=== PATIENT | male | born 1950 | race Caucasian/White ===

== ENCOUNTER 2019-10-06 11:43 | Outpatient (CLI) | payer OTHER, SELFPAY ==
--- NOTE | ~2019-10-06 | XR_ITS ---
EXAMINATION: XR chest 2V DATE: 10/06/2019 11:52 INDICATION: Personal history of nicotine dependence. TECHNIQUE: Frontal and lateral views of the chest were obtained. COMPARISON: None. FINDINGS: The chest demonstrates clear lungs without pneumonia, pleural effusion, or pneumothorax. Th e heart size is normal. IMPRESSION: 1. No acute cardiopulmonary disease. Reviewed, dictated and finalized at location A. TICS TEACHER
== END 2019-10-06 11:44 | disposition home or self-care (01) ==
LOC: ANHBWCIMG 11:45
PROVIDERS: PCP Family Medicine; Visit Provider Family Medicine
DX: Z87.891 Personal history of nicotine dependence (principal)
CPT/HCPCS: 71046

== ENCOUNTER 2019-10-27 09:17 | Outpatient (CLI) | payer OTHER, SELFPAY ==
[2019-10-27 17:08] LABS: Basophils Absolute Auto 0.1 K/mm3 (0.0-0.1); Basophils Percent Auto 0.9 % (0.2-1.2); Eosinophils Absolute Auto 0.2 K/mm3 (0-0.3); Eosinophils Percent Auto 3.7 % (0-4.4); Hemoglobin 14.9 g/dL (14.0-18.0); Immature Granulocyte Absolute 0.03 K/mm3 (0.00-0.031); Immature Granulocyte Percent A 0.6 % (0-0.5); Lymphocytes Absolute Auto 1.76 K/mm3 (0.9-3.2); Lymphocytes Percent Auto 32.5 % (18.3-44.2); Mean Corpuscular HGB Conc 33.1 g/dl (32-36); Mean Corpuscular Hemoglobin 29.9 pg (26-34); Mean Corpuscular Volume 90.4 fl (80-100); Mean Platelet Volume 10.2 fl (7.4-10.4); Monocytes Absolute Auto 0.7 K/mm3 (0.1-0.6); Monocytes Percent Auto 12.4 % (2.6-8.5); Neutrophils Absolute Auto 2.7 K/mm3 (1.3-6.7); Neutrophils Percent Auto 49.9 % (45.5-73.1); Platelet Count Result 235 k/mm3 (150-375); Red Blood Count 4.98 M/mm3 (4.6-6.20); Red Cell Distribution Width 12.7 % (11.5-14.5); White Blood Count 5.4 K/mm3 (4.5-10.0)
[2019-10-27 17:27] LABS: Alanine Aminotransferase 31 U/L (4-50); Albumin Level 4.6 g/dL (3.5-5.1); Alkaline Phosphatase 93 U/L (38-126); Aspartate Amino Transferase 35 U/L (17-59); Blood Urea Nitrogen 15 mg/dL (9-20); CRP < 0.5 mg/dL (<1.0); Carbon Dioxide 28 mmol/L (22-30); Chloride 104 mmol/L (98-107); Cholesterol 225 mg/dL (0-200); Estimated Glomerular Filt Rate > 60; Glucose 108 mg/dL (75-110); HDL Direct 38 mg/dL; Potassium 4.6 mmol/L (3.4-5.0); Sodium 141 mmol/L (137-145); Triglycerides 219 mg/dL (<150)
[2019-10-27 17:30] LABS: Add Urine Microscopic? YES; Appearance Urine Clear (Clear); Bilirubin Urine Negative (Negative); Blood Urine Negative (Negative); Color Urine Amber (Yellow); Glucose Urine UA Negative (Negative); Ketones Urine Negative (Negative); Leukocyte Esterase Ur Negative LEU/UL (Negative); Nitrate Urine Negative (Negative); Protein Urine Negative (Negative); Specific Grav Ur 1.023 (1.001-1.035); Urobilinogen Urine Negative mg/dL (<2.0)
[2019-10-27 17:36] LABS: LDL Cholesterol Direct 142 mg/dL
[2019-10-27 17:37] LABS: Iron 104 ug/dL (49-181)
[2019-10-27 17:46] LABS: Percent Iron Saturation 35 % (20-50)
[2019-10-27 17:51] LABS: Vitamin D 25 Hydroxy 70.8 ng/mL
[2019-10-27 18:34] LABS: Folic Acid > 20.0 ng/mL (2.76->20)
[2019-10-31 21:17] LABS: C-Peptide 2.08 ng/mL (0.80-3.85)
[2019-11-01 08:54] LABS: Testosterone Free 46.7 pg/mL (35.0-155.0); Testosterone Total 359 ng/dL (250-1100)
== END 2019-10-27 09:18 | disposition home or self-care (01) ==
LOC: ANHBWCLAB 09:19
PROVIDERS: PCP Family Medicine; Visit Provider Family Medicine
DX: E05.00 Thyrotoxicosis with diffuse goiter without thyrotoxic crisis or storm (principal); G62.9 Polyneuropathy, unspecified; M19.90 Unspecified osteoarthritis, unspecified site; R53.83 Other fatigue; Z12.5 Encounter for screening for malignant neoplasm of prostate; Z79.899 Other long term (current) drug therapy; Z82.62 Family history of osteoporosis; N99.89 Other postprocedural complications and disorders of genitourinary system; R20.0 Anesthesia of skin
CPT/HCPCS: 36415; 80053; 80061; 81001; 82306; 82607; 82746; 83540; 83550; 84402; 84403; 84443; 84681; 85025; 86140

== ENCOUNTER 2021-06-17 10:40 | Outpatient (CLI) | payer OTHER, SELFPAY ==
[2021-06-17 20:17] LABS: Hematocrit 46.3 % (42.0-52.0); Hemoglobin 15.4 g/dL (14.0-18.0); Mean Corpuscular HGB Conc 33.3 g/dl (32-36); Mean Corpuscular Hemoglobin 30.8 pg (26-34); Mean Corpuscular Volume 92.6 fl (80-100); Mean Platelet Volume 10.1 fl (7.4-10.4); Platelet Count Result 240 k/mm3 (150-375); Red Cell Distribution Width 12.4 % (11.5-14.5); White Blood Count 6.7 K/mm3 (4.5-10.0)
[2021-06-17 20:25] LABS: Alanine Aminotransferase 29 U/L (4-50); Albumin Level 4.8 g/dL (3.5-5.1); Alkaline Phosphatase 83 U/L (38-126); Anion Gap 11 mmol/L (8-16); Aspartate Amino Transferase 31 U/L (17-59); Blood Urea Nitrogen 20 mg/dL (9-20); Calcium 9.1 mg/dL (8.4-10.2); Carbon Dioxide 28 mmol/L (22-30); Chloride 103 mmol/L (98-107); Estimated Glomerular Filt Rate > 60; Glucose 131 mg/dL (65-110); Potassium 4.4 mmol/L (3.4-5.0); Sodium 142 mmol/L (137-145)
[2021-06-17 20:27] LABS: Cholesterol 250 mg/dL (0-200); HDL Direct 35 mg/dL; Triglycerides 241 mg/dL (<150)
[2021-06-17 20:38] LABS: LDL Cholesterol Direct 164 mg/dL
[2021-06-17 21:25] LABS: Vitamin D 25 Hydroxy 68.1 ng/mL
[2021-06-17 21:39] LABS: Thyroid Stimulating Hormone Reflex 0.527 uIU/mL (0.465-4.68)
== END 2021-06-17 10:41 | disposition home or self-care (01) ==
PROVIDERS: PCP Family Medicine; Visit Provider Family Medicine
DX: E05.00 Thyrotoxicosis with diffuse goiter without thyrotoxic crisis or storm (principal); Z68.28 Body mass index [BMI] 28.0-28.9, adult; E55.9 Vitamin D deficiency, unspecified; R79.89 Other specified abnormal findings of blood chemistry; Z12.5 Encounter for screening for malignant neoplasm of prostate
CPT/HCPCS: 36415; 80053; 80061; 82306; 84153; 84443; 85027; G0103

== ENCOUNTER 2021-12-15 10:55 | Outpatient (CLI) | payer OTHER, SELFPAY ==
[2021-12-15 18:45] LABS: Hematocrit 45.7 % (42.0-52.0); Hemoglobin 14.8 g/dL (14.0-18.0); Mean Corpuscular HGB Conc 32.4 g/dl (32-36); Mean Corpuscular Hemoglobin 30.3 pg (26-34); Mean Corpuscular Volume 93.5 fl (80-100); Mean Platelet Volume 10.1 fl (7.4-10.4); Platelet Count Result 255 k/mm3 (150-375); Red Blood Count 4.89 M/mm3 (4.6-6.20); Red Cell Distribution Width 12.4 % (11.5-14.5); White Blood Count 7.4 K/mm3 (4.5-10.0)
[2021-12-15 19:01] LABS: Alanine Aminotransferase 19 U/L (4-50); Albumin Level 4.6 g/dL (3.5-5.1); Alkaline Phosphatase 90 U/L (38-126); Anion Gap 10 mmol/L (8-16); Aspartate Amino Transferase 22 U/L (17-59); Bilirubin,Total 0.7 mg/dL (0.2-1.3); Blood Urea Nitrogen 17 mg/dL (9-20); Calcium 8.8 mg/dL (8.4-10.2); Carbon Dioxide 29 mmol/L (22-30); Chloride 103 mmol/L (98-107); Cholesterol 165 mg/dL (0-200); Estimated Glomerular Filt Rate > 60; Glucose 112 mg/dL (65-110); HDL Direct 38 mg/dL; Potassium 4.3 mmol/L (3.4-5.0); Sodium 142 mmol/L (137-145); Triglycerides 175 mg/dL (<150)
[2021-12-15 19:14] LABS: LDL Cholesterol Direct 87 mg/dL
[2021-12-15 19:19] LABS: Hemoglobin A1C 5.4 % (<5.7)
[2021-12-16 19:53] LABS: Amphetamines NEGATIVE ng/mL (<500); Barbiturates NEGATIVE ng/mL (<300); Benzodiazepines NEGATIVE ng/mL (<100); Cocaine Metabolite NEGATIVE ng/mL (<100); Marijuana Metabolite NEGATIVE ng/mL (<20); Methadone Metabolite NEGATIVE ng/mL (<100); Opiates NEGATIVE ng/mL (<100); Oxidant NEGATIVE mcg/mL (<200); pH 6.2 (4.5-9.0)
== END 2021-12-15 10:56 | disposition home or self-care (01) ==
PROVIDERS: PCP Family Medicine; Visit Provider Family Medicine
DX: E05.00 Thyrotoxicosis with diffuse goiter without thyrotoxic crisis or storm (principal); G62.9 Polyneuropathy, unspecified; I10 Essential (primary) hypertension; R73.09 Other abnormal glucose; Z79.899 Other long term (current) drug therapy; M19.90 Unspecified osteoarthritis, unspecified site
CPT/HCPCS: 36415; 80053; 80061; 80299; 83036; 85027

== ENCOUNTER 2022-05-28 10:36 | Outpatient (CLI) | payer OTHER, SELFPAY ==
--- NOTE | ~2022-05-28 | XR_ITS ---
EXAMINATION: XR wrist LT min 3V DATE: 05/28/2022 10:59 INDICATION: Ulnar-sided pain and swelling at the left wrist TECHNIQUE: Posteroanterior, ulnar deviation, oblique, and lateral views of the left wrist were obtain ed. COMPARISON: none FINDINGS: Alignment is normal. No fracture. Polyarticular osteoarthritis, severe at the triscaphe, first carpom etacarpal, pisotriquetral, first-third metacarpophalangeal and at all of the visualized interphalange al joints, moderate at the distal radioulnar joint and mild at the wrist and midcarpal and fourth and fifth metacarpophalangeal joints. Soft tissues are unremarkable. IMPRESSION: 1. Moderate to severe polyarticular osteoarthritis throughout the visualized left hand and wrist. No acute osseous abnormality. Reviewed, dictated and finalized at location A. IMPRESSION: 1. Moderate to severe polyarticular osteoarthritis throughout the visualized le ft hand and wrist. No acute osseous abnormality.
--- NOTE | ~2022-05-28 | XR_ITS ---
EXAMINATION: XR forearm RT 2V DATE: 05/28/2022 11:00 INDICATION: Right forearm pain and swelling. TECHNIQUE: 2 views of right forearm were obtained. COMPARISON: None. FINDINGS: Bone alignment is normal. No fracture. There is severe osteoarthritis of first carpometacar pal joint and mild osteoarthritis of triscaphe joint. 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 No elbow joint effusion. IMPRESSION: 1. Polyarticular osteoarthritis. Reviewed, dictated and finalized at location A.
--- NOTE | ~2022-05-28 | XR_ITS ---
EXAMINATION: XR knee LT min 4V DATE: 05/28/2022 10:59 INDICATION: Chronic left knee pain. Arthritis. TECHNIQUE: 4 views of left knee were obtained. COMPARISON: Left knee radiographs 09/05/2020 FINDINGS: Bone alignment is normal. No fracture. There is severe osteoarthritis of medial compartment , moderate osteoarthritis of patellofemoral compartment, and mild osteoarthritis of lateral compartme nt. There is a small knee joint effusion. IMPRESSION: 1. Severe left knee osteoarthritis. 2. Small knee joint effusion. Reviewed, dictated and finalized at location A.
[2022-05-28 18:37] LABS: Hematocrit 45.7 % (42.0-52.0); Hemoglobin 15.1 g/dL (14.0-18.0); Mean Corpuscular Hemoglobin 30.9 pg (26-34); Mean Corpuscular Volume 93.5 fl (80-100); Platelet Count Result 241 k/mm3 (150-375); Red Blood Count 4.89 M/mm3 (4.6-6.20); Red Cell Distribution Width 12.4 % (11.5-14.5); White Blood Count 6.3 K/mm3 (4.5-10.0)
[2022-05-28 20:13] LABS: Vitamin D 25 Hydroxy 77.5 ng/mL
[2022-05-28 20:27] LABS: Alanine Aminotransferase 22 U/L (6-50); Albumin Level 4.8 g/dL (3.5-5.1); Alkaline Phosphatase 91 U/L (38-126); Anion Gap 12 mmol/L (8-16); Aspartate Amino Transferase 59 U/L (17-59); Bilirubin,Total 0.9 mg/dL (0.2-1.3); Blood Urea Nitrogen 18 mg/dL (9-20); Calcium 8.6 mg/dL (8.4-10.2); Carbon Dioxide 29 mmol/L (22-30); Chloride 101 mmol/L (98-107); Cholesterol 140 mg/dL (0-200); Estimated Glomerular Filt Rate > 60; Glucose 130 mg/dL (65-110); HDL Direct 34 mg/dL; Potassium 4.4 mmol/L (3.4-5.0); Sodium 142 mmol/L (137-145); Triglycerides 169 mg/dL (<150)
[2022-05-28 20:35] LABS: LDL Cholesterol Direct 71 mg/dL
[2022-05-28 20:56] LABS: Prostate Specific Antigen 1.7 ng/mL (< OR = 4.0)
[2022-05-28 20:57] LABS: Thyroid Stimulating Hormone 0.344 uIU/mL (0.465-4.680)
== END 2022-05-28 10:37 | disposition home or self-care (01) ==
PROVIDERS: PCP Family Medicine; Visit Provider Family Medicine
DX: E05.00 Thyrotoxicosis with diffuse goiter without thyrotoxic crisis or storm (principal); E53.8 Deficiency of other specified B group vitamins; E78.5 Hyperlipidemia, unspecified; I10 Essential (primary) hypertension; R79.89 Other specified abnormal findings of blood chemistry; R53.83 Other fatigue; Z12.5 Encounter for screening for malignant neoplasm of prostate; Z79.899 Other long term (current) drug therapy; M19.031 Primary osteoarthritis, right wrist; M17.12 Unilateral primary osteoarthritis, left knee; M25.462 Effusion, left knee; M19.032 Primary osteoarthritis, left wrist; M19.042 Primary osteoarthritis, left hand
CPT/HCPCS: 36415; 73090; 73110; 73564; 80053; 80061; 82306; 82607; 84153; 84443; 85027; G0103

== ENCOUNTER 2022-09-21 08:53 | Outpatient (CLI) | payer OTHER, SELFPAY ==
--- NOTE | ~2022-09-21 | XR_ITS ---
EXAMINATION: XR knee RT 3V DATE: 09/21/2022 09:09 INDICATION: Right knee pain. TECHNIQUE: 3 views of right knee were obtained. COMPARISON: None. FINDINGS: There is a total right knee arthroplasty without patellar resurfacing in near-anatomic alig nment. No periprosthetic lucency to suggest loosening or infection. There are osteophytes of the mtz lla. No knee joint effusion. IMPRESSION: 1. Total right knee arthroplasty in near-anatomic alignment. 2. Mild patellofemoral compartment osteoarthritis. Reviewed, dictated and finalized at location A. EM MILL STICKER
[2022-09-21 19:38] LABS: Thyroid Stimulating Hormone 0.182 uIU/mL (0.465-4.680)
== END 2022-09-21 08:54 | disposition home or self-care (01) ==
LOC: ANHBWCLAB 08:54
PROVIDERS: PCP Family Medicine; Visit Provider Family Medicine
DX: E05.00 Thyrotoxicosis with diffuse goiter without thyrotoxic crisis or storm (principal); M17.11 Unilateral primary osteoarthritis, right knee
CPT/HCPCS: 36415; 73562; 84443

== ENCOUNTER 2022-09-21 09:54 | Outpatient (CLI) | payer OTHER, SELFPAY ==
--- NOTE | ~2022-09-21 | US_ITS ---
EXAMINATION: US aorta DATE: 09/21/2022 10:25 INDICATION: Dominant aortic aneurysm screening with risk factors of hypertension and bursal history o f nicotine dependence TECHNIQUE: Grayscale, color Doppler, and pulsed Doppler images of the aorta and common iliac arteries were obtained. COMPARISON: None. FINDINGS: The proximal aorta measures 2.3 cm. The mid aorta measures 2.1 cm in AP diameter. The distal aorta me asures 1.9 cm. The right common iliac artery measures 1.3 cm. The left common iliac artery measures 1 .1 cm. IMPRESSION: 1. Normal caliber abdominal aorta. No aneurysm. Reviewed, dictated and finalized at location A. DEVELOPER
== END 2022-09-21 09:55 | disposition home or self-care (01) ==
PROVIDERS: PCP Family Medicine; Visit Provider Family Medicine
DX: E05.00 Thyrotoxicosis with diffuse goiter without thyrotoxic crisis or storm (principal); Z87.891 Personal history of nicotine dependence
CPT/HCPCS: 36415; 73562; 76775; 84443

== ENCOUNTER 2023-03-25 13:55 | Outpatient (CLI) | payer OTHER, SELFPAY ==
[2023-03-25 18:36] LABS: Hematocrit 41.1 % (42.0-52.0); Hemoglobin 13.8 g/dL (14.0-18.0); Mean Corpuscular HGB Conc 33.6 g/dl (32-36); Mean Corpuscular Hemoglobin 31.4 pg (26-34); Mean Corpuscular Volume 93.6 fl (80-100); Mean Platelet Volume 10.5 fl (7.4-10.4); Platelet Count Result 217 k/mm3 (150-375); Red Blood Count 4.39 M/mm3 (4.6-6.20); Red Cell Distribution Width 11.6 % (11.5-14.5); White Blood Count 7.9 K/mm3 (4.5-10.0)
[2023-03-25 18:57] LABS: Alanine Aminotransferase 25 U/L (6-50); Albumin Level 4.5 g/dL (3.5-5.1); Alkaline Phosphatase 70 U/L (38-126); Anion Gap 7 mmol/L (8-16); Aspartate Amino Transferase 37 U/L (17-59); Bilirubin,Total 1.1 mg/dL (0.2-1.3); Blood Urea Nitrogen 23 mg/dL (9-20); Calcium 8.5 mg/dL (8.4-10.2); Carbon Dioxide 32 mmol/L (22-30); Chloride 100 mmol/L (98-107); Estimated Glomerular Filt Rate > 60; Glucose 95 mg/dL (65-110); Potassium 4.4 mmol/L (3.4-5.0); Sodium 139 mmol/L (137-145)
== END 2023-03-25 13:56 | disposition home or self-care (01) ==
PROVIDERS: PCP Family Medicine; Visit Provider Family Medicine
DX: I10 Essential (primary) hypertension (principal); E03.9 Hypothyroidism, unspecified
CPT/HCPCS: 36415; 80053; 84443; 85027

== ENCOUNTER 2023-04-28 13:07 | Outpatient (CLI) | payer OTHER, SELFPAY ==
[2023-04-28 18:15] LABS: Hematocrit 41.4 % (42.0-52.0); Hemoglobin 13.7 g/dL (14.0-18.0); Mean Corpuscular HGB Conc 33.1 g/dl (32-36); Mean Corpuscular Hemoglobin 31.6 pg (26-34); Mean Corpuscular Volume 95.4 fl (80-100); Mean Platelet Volume 10.5 fl (7.4-10.4); Platelet Count Result 235 k/mm3 (150-375); Red Blood Count 4.34 M/mm3 (4.6-6.20); Red Cell Distribution Width 11.6 % (11.5-14.5); White Blood Count 6.9 K/mm3 (4.5-10.0)
[2023-04-28 19:21] LABS: Iron 75 ug/dL (49-181)
[2023-04-28 20:57] LABS: Percent Iron Saturation 23 % (20-50)
== END 2023-04-28 13:08 | disposition home or self-care (01) ==
PROVIDERS: PCP Family Medicine; Visit Provider Family Medicine
DX: D64.9 Anemia, unspecified (principal)
CPT/HCPCS: 36415; 82607; 82728; 83540; 83550; 85027

== ENCOUNTER 2023-10-18 13:42 | Outpatient (CLI) | payer OTHER, SELFPAY ==
--- NOTE | ~2023-10-18 | XR_ITS ---
EXAM: XR elbow RT min 3V DATE: 10/18/2023 14:06 HISTORY: Pain bilateral elbows - unable to straighten, no injury . COMPARISON: Right elbow, same date. FINDINGS: Normal mineralization. No fracture or dislocation. No lytic or blastic lesion. Moderate na rrowing, subchondral sclerosis, and osteophytosis at the radiohumeral and ulnohumeral articulations. Medial enthesopathy. Minimal olecranon enthesopathy. No erosion or periosteal change. Small elbow perez nt effusion. IMPRESSION: Moderate elbow osteoarthritis. Reviewed, dictated and finalized at location K. PROGRAMMER ANALYST
--- NOTE | ~2023-10-18 | XR_ITS ---
Left elbow Technique: AP, oblique, and lateral views were obtained. Clinical History: Pain Findings: No acute fracture or dislocation is seen. Osseous alignment is anatomic. There is moderate to advanced osteoarthritis throughout the elbow joint. There is no displacement of the fat pads, and soft tissues are unremarkable. Impression: Moderate to advanced osteoarthritis throughout the elbow joint. Large osteophyte versus possibly loos e body at the anterior aspect of the joint. Reviewed, dictated and finalized at location M. ERGARTEN AIDE Impression: Moderate to advanced osteoarthritis throughout the elbow joint. Large osteophyt e versus possibly loose body at the anterior aspect of the joint.
== END 2023-10-18 13:43 | disposition home or self-care (01) ==
PROVIDERS: PCP Family Medicine; Visit Provider Family Medicine
DX: M19.021 Primary osteoarthritis, right elbow (principal); M19.022 Primary osteoarthritis, left elbow
CPT/HCPCS: 73080

== ENCOUNTER 2023-12-07 13:51 | Outpatient (CLI) | payer OTHER, SELFPAY ==
--- NOTE | ~2023-12-07 | XR_ITS ---
Left Shoulder Technique: AP and scapular Y views were obtained. Clinical History: Pain Findings: No fracture or dislocation is seen. Osseous alignment is anatomic. The glenohumeral and acr omioclavicular joint spaces are preserved. Soft tissues are unremarkable. Impression: Unremarkable left shoulder radiographs. Reviewed, dictated and finalized at [facility]. Impression: Unremarkable left shoulder radiographs.
== END 2023-12-07 13:52 | disposition home or self-care (01) ==
PROVIDERS: PCP Family Medicine; Visit Provider Family Medicine
DX: M25.512 Pain in left shoulder (principal)
CPT/HCPCS: 73030

== ENCOUNTER 2024-06-12 13:09 | Outpatient (CLI) | payer OTHER, SELFPAY ==
[2024-06-12 18:59] LABS: Basophils Absolute Auto 0.1 K/mm3 (0.0-0.1); Basophils Percent Auto 0.8 % (0.2-1.2); Eosinophils Absolute Auto 0.5 K/mm3 (0-0.3); Eosinophils Percent Auto 7.4 % (0-4.4); Hematocrit 39.6 % (42.0-52.0); Hemoglobin 13.4 g/dL (14.0-18.0); Immature Granulocyte Absolute 0.02 K/mm3 (0.00-0.031); Immature Granulocyte Percent A 0.3 % (0-0.5); Lymphocytes Absolute Auto 1.82 K/mm3 (0.9-3.2); Lymphocytes Percent Auto 27.9 % (18.3-44.2); Mean Corpuscular HGB Conc 33.8 g/dl (32-36); Mean Corpuscular Hemoglobin 31.8 pg (26-34); Mean Corpuscular Volume 93.8 fl (80-100); Mean Platelet Volume 10.2 fl (7.4-10.4); Monocytes Absolute Auto 0.7 K/mm3 (0.1-0.6); Monocytes Percent Auto 10.9 % (2.6-8.5); Neutrophils Absolute Auto 3.4 K/mm3 (1.3-6.7); Neutrophils Percent Auto 52.7 % (45.5-73.1); Platelet Count Result 213 k/mm3 (150-375); Red Blood Count 4.22 M/mm3 (4.6-6.20); Red Cell Distribution Width 11.8 % (11.5-14.5); White Blood Count 6.5 K/mm3 (4.5-10.0)
[2024-06-12 19:29] LABS: Iron 84 ug/dL (49-181)
[2024-06-12 19:30] LABS: Alanine Aminotransferase 18 U/L (6-50); Albumin Level 4.5 g/dL (3.5-5.1); Alkaline Phosphatase 68 U/L (38-126); Anion Gap 7 mmol/L (4-12); Aspartate Amino Transferase 35 U/L (17-59); Bilirubin,Total 0.8 mg/dL (0.2-1.3); Blood Urea Nitrogen 20 mg/dL (9-20); Calcium 8.8 mg/dL (8.4-10.2); Carbon Dioxide 30 mmol/L (22-30); Chloride 101 mmol/L (98-107); Estimated Glomerular Filt Rate > 60; Glucose 115 mg/dL (65-110); Potassium 4.2 mmol/L (3.4-5.0); Sodium 138 mmol/L (137-145)
[2024-06-12 19:41] LABS: Percent Iron Saturation 32 % (20-50)
== END 2024-06-12 13:10 | disposition home or self-care (01) ==
PROVIDERS: PCP Family Medicine; Visit Provider Family Medicine
DX: D64.9 Anemia, unspecified (principal); E53.8 Deficiency of other specified B group vitamins; E78.5 Hyperlipidemia, unspecified; I10 Essential (primary) hypertension; M25.561 Pain in right knee; R53.83 Other fatigue; R73.09 Other abnormal glucose; R79.89 Other specified abnormal findings of blood chemistry
CPT/HCPCS: 36415; 80053; 82607; 83540; 83550; 84443; 85025

== ENCOUNTER 2024-06-19 13:26 | Outpatient (CLI) | payer OTHER, SELFPAY ==
[2024-06-19 20:11] LABS: Hemoglobin A1C 5.5 % (<5.7)
== END 2024-06-19 13:27 | disposition home or self-care (01) ==
PROVIDERS: PCP Family Medicine; Visit Provider Family Medicine
DX: R79.89 Other specified abnormal findings of blood chemistry (principal)
CPT/HCPCS: 36415; 83036

== ENCOUNTER 2025-01-08 11:51 | Outpatient (CLI) | payer OTHER, SELFPAY ==
--- OUTSIDE RECORDS SUMMARY | 2025-01-08 12:10 | XMS_ITS | Encounter Summary ---
Author Organization [facility] Address [address] [place] [address] Care Team Providers Care Laundry Attendant Name Role Phone Christi Diaz MD Primary Care Provider [phone] Abdi Wolfe MD Unavailable [phone] Valerio Leger MD Unavailable [phone] Uzair ROQUE MD, Chriss Unavailable [phone] Christi Diaz MD Unavailable [phone] Dave Mendoza DO Primary Care Provider [phone] Encounter Details Date Type Department Care Team (Late st Contact Info) Description 02/12/2014 [facility] Out[facility] Visit [facility]NAL [facility]PT Social History Tobacco Use Types Packs/Day Years Used Date Smoking Tobacco: Former Cigarettes Q uit: 08/23/1995 Smokeless Tobacco: Never Comments:QUIT 10 YRS AGO Alcohol Use Standard Drinks/Week Comments No 0 (1 standard drink = 0.6 oz pur e alcohol) Sex and Gender Information Value Date Recorded Sex Assigned at Not on file 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 Gender Identity Not on file Sexual Orientation Not on file Occupation Industry Job Start Date Job End Date [employer] Not on file Not on file N ot on file documented as of this encounter Plan of Treatment Not on file documented as of this encounter Visit Diagnoses Not on filedocumented in this encounter Care Teams Laundry Attendant Relationship Specialty [place] [id number] [place] [address] PCP - General Internal Medicine 04/29/10 11/20/20 [place] [id number] [place] [address] PCP - [facility] 06/23/19 Dave Mendoza DO [address] [place] [address] PCP - General Family Medicine 11/21/20 [place] [id number] [address] [place] [address] Orthopedic Surgery 01/26/14 [place] [id number] [address] [place] [address] Anesthesiology-Pain Management 03/20/15 [place] [id number] [address] [place], [place] [id number] Orthopedic Surgery 02/08/17 documented as of this encounter
--- OUTSIDE RECORDS SUMMARY | 2025-01-08 12:10 | XMS_ITS | Encounter Summary ---
Author Organization [facility] Address [address] [place] [address] Care Team Providers Care Editor News Name Role Phone Christi Diaz MD Primary Care Provider [phone] Abdi Wolfe MD Unavailable [phone] Valerio Leger MD Unavailable [phone] Uzair ROQUE MD, Frank Unavailable [phone] Christi Diaz MD Unavailable [phone] Dave Mendoza DO Primary Care Provider [phone] Encounter Details Date Type Department Care Team (Late st Contact Info) Description 06/14/[address] 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 Answer Date of Assessment Author No 06/14/2018 4:30 PM Suyapa Dennis RN * Is person blind or have serious difficulty seeing? Answer Date of Assessment Author No 06/14/2018 4:30 PM Suyapa Dennis RN * Does person have serious difficulty walking/climbing stairs? Answer Date of Assessment Author No 06/14/2018 4:30 PM Suyapa Dennis RN * Does person have difficulty dressing/bathing? Answer Date of Assessment Author No 06/14/2018 4:30 PM Suyapa Dennis RN * Does person have difficulty doing errands alone? Answer Date of Assessment Author No 06/14/2018 4:30 PM Suyapa Dennis RN documented as of this encounter Mental Status * Does person have difficulty concentrating/remembering/making decisions? Answer Entry Date Author No 06/14/2018 4:30 PM Suyapa Dennis RN documented in this encounter Plan of Treatment Not on file documented as of this encounter Goals Goal Patient Goal Type Associated Problems Recent Progress Patient-Stated? Author Reduce cholesterol intake. Diet No Aleida Kay documented as of this encounter Visit Diagnoses Not on filedocumented in this encounter Care Teams Editor News Relationship Specialty [place] [id number] [address] [place] [address] PCP - General Internal Medicine 04/29/10 11/20/20 [place] [address] [address] [place] [address] [facility] - [facility] 06/23/19 Dave Mendoza DO [address] [place] [address] PCP - General Family Medicine 11/21/20 [place] [id number] [place] [address] Orthopedic Surgery 01/26/14 [place] [address] [place] [address] Anesthesiology-Pain Management 03/20/15 [place] [address] [address] [place] [address] Orthopedic Surgery 02/08/17 documented as of this encounter
--- OUTSIDE RECORDS SUMMARY | 2025-01-08 12:10 | XMS_ITS | Clinical Summary ---
Author Organization [facility] [employer] Address [address] [place] [address] Care Team Providers Care Digital Marketing Manager Name Role Phone Abdi Wolfe MD Unavailable [phone] Valerio Leger MD Unavailable [phone] Uzair ROQUE MD, Frank Unavailable [phone] Dave Mendoza DO Primary Care Provider Source Comments [facility],non-owned Affiliates and Associated Physician Practices is amultiple site organization consisting of ambulatory clinics and hospital sitesin [place], [place], [place] and [place]. This disclosure is being madepursuant to the Care Everywhere program and may not contain all information available regarding this patient. Last updated 18.[facility] Allergies No known active allergies Medications * Be aware that medications may not be up to date on this document. Alwaysverify current medications with the patient. Cholecalciferol (VITAMIN D-3 PO) Take by mouth once daily Active gabapentin (NEURONTIN) 300 MG capsule Take 1 capsule by mouth 3 times daily 270 capsule 2 03/27/2019 Active diclofenac sodium (VOLTAREN) 1 % gelIndications: Plantar fibromatosis,Bi lateral foot pain,Idiopathic peripheral neuropathy Apply 4 g to affected area 4 times daily Apply to foot as needed for pain 100 g 5 03/29/2019 Active levothyroxine (SYNTHROID) 112 MCG tablet TAKE 1 TABLET BY MOUTH ONCE DAILY 90 tablet 2 09/21/2019 Active amLODIPine (NORVASC) 5 MG tablet TAKE 1 AND 1/2 TABLETS BY MOUTH ONCE DAILY 135 tablet 2 09/25/2019 Active Active Problems Problem Noted Date Diagnosed Date Idiopathic peripheral neuropathy 01/18/2019 Status post total right knee replacement 019 Arthralgia of knee, right 06/14/2018 Elevated prostate specific antigen (PSA) 018 Chronic low back pain without sciatica 8 Status post total replacement of left hip 2016 Essential hypertension 05/05/2016 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 Graves disease 12/27/2008 Elevated cholesterol 12/27/2008 OA (osteoarthritis) 12/27/2008 Overview (12/27/2008): ELBOW Resolved Problems Problem Noted Date Diagnosed Date Resolved Date Primary osteoarthritis of both knees 10/20/2017 06/06/2018 Osteoarthrosis involving lower leg 01/26/2014 06/06/2018 Overview (11/16/2015): 2015 IMO Updt Screening for prostate cancer 03/29/2009 06/06/2018 Family History Medical History Relation Name Comments CAD (Coronary Artery Disease) Brother 2 cad and stent Cancer Father LUNG, BONE CAD (Coronary Artery Disease) Mother Heart Disease Mother UT Relation Name Status Comments Brother 1 X 3 Alive Brother 2 Father (Age 67) Mother (Age 60) Sister Alive Social History Tobacco Use Types Packs/Day Years Used Date Smoking Tobacco: Former Cigarettes Q uit: 08/23/1995 Smokeless Tobacco: Never Comments:QUIT 10 YRS AGO Alcohol Use Standard Drinks/Week Comments No 0 (1 standard drink = 0.6 oz pur e alcohol) Sex and Gender Information Value Date Recorded Sex Assigned at Not on file 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 Gender Identity Not on file Sexual Orientation Not on file Occupation Industry Job Start Date Job End Date [employer] Not on file Not on file N ot on file Last Filed Vital Signs Vital Sign Reading Time Taken Comments Blood Pressure 129/86 05/19/2021 10:45 AM CDT Pulse 70 05/19/2021 10:45 AM CDT Temperature 36.4 C (97.5 F) 04/14/2021 9:52 AM CDT Respiratory Rate 17 05/19/2021 10:45 AM CDT Oxygen Saturation 96% 05/19/2021 10:45 AM CDT Inhaled Oxygen Concentration - - Weight 86.2 kg (190 lb) 05/19/2021 7:40 AM CDT Height 177.8 cm (5' 10 ) 05/19/2021 7:40 AM CDT Body Mass Index 27.26 05/19/2021 7:40 AM CDT Plan of Treatment Health Maintenance Due Date Last Done Comments COLOGUARD (AGES 45-75) - COLON CA SCREENING 1950 CT COLONOGRAPHY - COLON CA SCREENING 1950 FIT - COLON CA SCREENING 1950 FLEX SIG - COLON CA SCREENING 1950 MEDICARE AWV 12 MONTHS 1950 HEPATITIS C SCREENING 11/27/1970 DTAP/TDAP/TD VACCINES (1 - Tdap) 12/02/1971 PNEUMOCOCCAL VACCINE 50+ (1 of 1 - PCV) 2002 ZOSTER VACCINE (1 of 2) 2002 AAA SCREENING 2017 PROSTATE CA SCREENING 05/14/2018 05/14/2017 , 06/20/2013, 06/16/2012, Additional history exists SCREENING FOR DIABETES 02/09/2022 9, 02/09/2019, 06/06/2018, Additional history exists COLON MONITORING 08/20/2022 08/20/2017, , 08/03/2014, Additional history exists Colorectal Cancer Screening 08/20/2022 LIPID TESTING 02/10/2024 02/09/2019, 06/23, 05/14/2017, Additional history exists COVID-19 VACCINE ( - season) 2024 DEPRESSION SCREENING 08/23/2024 INFLUENZA VACCINE (Season Ended) 2025 COLONOSCOPY - COLON CA SCREENING 08/20/2027 08/20/2017, 08/20/2017, 08/03/2014, Additional history exists Respiratory Syncytial Virus (RSV) Vaccine Pt: or over 60 yrs (1 - 1-dose 75+ series) 12/02/2027 HEPATITIS B VACCINE Aged Out No longe r eligible based on patient's age to complete this topic HIB VACCINE Aged Out No longer eligi ble based on patient's age to complete this topic HPV VACCINE Aged Out No longer eligi ble based on patient's age to complete this topic MENINGOCOCCAL (Group B) VACCINE SHARED DECISION-MAKING Aged Out No longer eligible based on patient's age to complete this topic MENINGOCOCCAL GROUPS A/C/Y/W VACCINE Aged Out No longer eligible based on patient's age to complete this topic Goals Goal Patient Goal Type Associated Problems Recent Progress Patient-Stated? Author Reduce cholesterol intake. Diet No Aleida [employer] Implanted Type Area Division Chair Device Identifier Shelf Expiration Date Model / Serial / Lot G7 Acetabular Shell 3 Hole 56mm Liner Size F Implanted:Qty: 1 on 04/08/2017 by Chriss Dunne IV, MD at [facility] Left: Hip [employer] 11/28/2026 [id number] / / [id number] Liner Actb G7 F Ntrl 36mm E1 Hip Implanted:Qty: 1 on 04/08/2017 by Chriss Dunne IV, MD at [facility] Left: [employer] 12/10/2021 [id number] / / [id number] Stem Fem Ceml Rdx Prof Typ1 Tprlok Sz 16 Implanted:Qty: 1 on 04/08/2017 by Chriss Dunne IV, MD at [facility] Left: [employer] 06/01/2026 [id number] / / [id number] Head Fem 36mm Hip Blx D Biolox Optn G7 Implanted:Qty: 1 on 04/08/2017 by Chriss Dunne IV, MD at [facility] Left: [employer] 09/29/2026 [id number] / / [id number] Slv Centering G7 +3mm Ofst Tpr Hip Ti Ty Implanted:Qty: 1 on 04/08/2017 by Chriss Dunne IV, MD at [facility] Left: [employer] 01/27/2027 [id number] / / [id number] Screw Bsplt 20mm 6.5mm Gns2 Kn Tib Por Implanted:Qty: 1 on 06/14/2018 by Chriss Dunne IV, MD at [facility] Right: Knee [employer] 11/10/2027 [id number] / / [id number] Screw Bsplt 20mm 6.5mm Gns2 Kn Tib Por Implanted:Qty: 2 on 06/14/2018 by Chriss Dunne IV, MD at [facility] Right: Knee [employer] 11/10/2027 [id number] / / [id number] Nail Im Fem Rt Por Gma 6 Lng Crv Implanted:Qty: 1 on 06/14/2018 by Chriss Dunne IV, MD at [facility] Right: Knee [employer] 07/17/2027 [id number] / / [id number] Bsplt Tib Legion 6 Kn Rt Vo Por Implanted:Qty: 1 on 06/14/2018 by Chriss Dunne IV, MD at [facility] Right: Knee [employer] 03/20/2028 [id number] / / [id number] Stem Tib 55mm 18mm Prfx Mtphsl Kn Implanted:Qty: 1 on 06/14/2018 by Chriss Dunne IV, MD at [facility] Right: Knee [employer] 01/17/2028 [id number] / / [id number] Ins Tib 5-6 11mm Kn Xlpe Dsh Legion Implanted:Qty: 1 on 06/14/2018 by Chriss Dunne IV, MD at [facility] Right: Knee [employer] 11/20/2027 [id number] / / [id number] Procedures Procedure Name Priority Date/Time Associated Diagnosis Comments COMPREHENSIVE METABOLIC PANEL Routine 02/09/2019 8:54 AM CDT Essential hypertension LIPID PROFILE Routine 02/09/2019 8:54 AM CDT Elevated cholesterol ENDOSCOPY, COLON, SCREENING Routine 08/20/2017 10:05 AM CANDLEMAKING LABORER PROSTATE SPECIFIC ANTIGEN SCREEN Routine 05/14/2017 3:30 PM CDT Screening PSA (prostate specific antigen) from Last 3 Months or Most Recently Relevant to Health Maintenance Results * (ABNORMAL) COMPREHENSIVE METABOLIC PANEL (02/09/2019 8:54 AM CDT) Glucose 108(H) 74 - 106 mg/dL [facility] ACCOUNT BILL BUN 17 8.4 - 25.7 mg/dL [facility] ACCOUNT BILL Creatinine 0.95 0.73 - 1.18 mg/dL [facility] ACCOUNT BILL eGFR by MDRD >60 >60 mL/min/1.7 3m2 [facility] ACCOUNT BILL eGFR by MDRD >60 >60 mL/min/1.7 3m2 [facility] ACCOUNT BILL Comment:Attention clinician: BUN Reference Range has changed. Sodium 141 136 - 145 mmol/L [facility] ACCOUNT BILL Potassium 4.8 3.5 - 5.1 mmol/L [facility] ACCOUNT BILL Chloride 103 98 - 107 mmol/L [facility] ACCOUNT BILL CO2 28 23 - 31 mmol/L [facility] ACCOUNT BILL Calcium 9.3 8.4 - 10.2 mg/dL [facility] ACCOUNT BILL Protein Total 7.8 6.4 - 8.3 gm/dL [facility] ACCOUNT BILL Albumin 4.8(H) 3.2 - 4.6 gm/dL [facility] ACCOUNT BILL Bilirubin Total 0.8 0.2 - 1.2 mg/dL [facility] ACCOUNT BILL Alkaline Phosphatase 102 40 - 150 U/L [facility] ACCOUNT BILL AST 23 5 - 34 U/L [facility] ACCOUNT BILL ALT 24 13 - 61 U/L [facility] ACCOUNT BILL Comment:FASTING Blood BLOOD SPECIMEN / Unknown 02/09/2019 8:54 AM CDT 02/09/2019 Narrative Resulting Agency Comment Lab Testing performed at: [facility] [id number] [place] [address] Dr Kwok [place] [id number] us Cherelle Quach LAUNDRY ASSISTANT-FASHION CONSULTANT SELLING LAB - CHEMISTRY ORDERABL ES Final Result [facility] ACCOUNT BILL [address] [place] [address] * (ABNORMAL) LIPID PROFILE (LIPID PANEL) (02/09/2019 8:54 AM CDT) Cholesterol 245(H) <200 mg/dL [facility] ACCOUNT BILL Triglycerides 125 <150 mg/dL [facility] ACCOUNT BILL HDL Cholesterol 51 >40 mg/dL [facility] ACCOUNT BILL VLDL Calculated 25(L) >=30 mg/dL [facility] ACCOUNT BILL LDL Calculated 169(H) <130 mg/dL [facility] ACCOUNT BILL Comment:FASTING Blood BLOOD SPECIMEN / Unknown 02/09/2019 8:54 AM CDT 02/09/2019 Narrative Resulting Agency Comment Lab Testing performed at: [address] Kwok [place] [id number] Cherelle Quach LAUNDRY ASSISTANT-FASHION CONSULTANT SELLING LAB - CHEMISTRY ORDERABL ES Final Result Performing Organization Address [facility] Co de Phone Number [facility] ACCOUNT BILL [address] [place] [address] * ENDOSCOPY, COLON, SCREENING (08/20/2017 10:05 AM CANDLEMAKING LABORER) Report Endoscopy POC _ Patient Name: Kev Aguayo Procedure Date: 08/20/2017 10:05 AM Date of : 1950 Admit Type: Outpatient Age: 66 Gender: Male Attending MD: Gabriel Medina MD _ Procedure: Colonoscopy Indications: Screening for colorectal malignant neoplasm, High risk colon cancer surveillance: Personal history of colonic polyps, Last colonoscopy: 2013 Providers: Gabriel Medina MD (Doctor) Referring MD: Christi Diaz MD (Referring MD) Medicines: Monitored Anesthesia Care Complications: No immediate complications. Estimated blood loss: None. _ Procedure: Pre-Anesthesia Assessment: - Prior to the procedure, a History and Physical was performed, and patient medications and allergies were reviewed. The patient is competent. The risks and benefits of the procedure and the sedation options and risks were discussed with the patient. All questions were answered and informed consent was obtained. Patient identification and proposed procedure were verified by the physician, the nurse and the heading maker in the procedure room. Mental Status Examination: alert and oriented. Airway Examination: normal oropharyngeal airway and neck mobility. Respiratory Examination: clear to auscultation. CV Examination: normal. Prophylactic Antibiotics: The patient does not require prophylactic antibiotics. Prior Anticoagulants: The patient has taken no previous anticoagulant or antiplatelet agents. ASA Grade Assessment: I - A normal, healthy patient. After reviewing the risks and benefits, the patient was deemed in satisfactory condition to undergo the procedure. The anesthesia plan was to use monitored anesthesia care (MAC). Immediately prior to administration of medications, the patient was re-assessed for adequacy to receive sedatives. The heart rate, respiratory rate, oxygen saturations, blood pressure, adequacy of pulmonary ventilation, and response to care were monitored throughout the procedure. The physical status of the patient was re-assessed after the procedure. After I obtained informed consent, the scope was passed under direct vision. Throughout the procedure, the patient's blood pressure, pulse, and oxygen saturations were monitored continuously. The Colonoscope was introduced through the anus and advanced to the cecum, identified by appendiceal orifice and ileocecal valve. The colonoscopy was performed without difficulty. The patient tolerated the procedure well. The quality of the bowel preparation was good. Findings: The digital rectal exam was normal. Pertinent negatives include no palpable rectal lesions. A 4 mm polyp was found in the transverse colon. The polyp was sessile. The polyp was removed with a cold biopsy forceps. Resection and retrieval were complete. The rectum, sigmoid colon, descending colon, ascending colon, cecum, appendiceal orifice and ileocecal valve appeared normal. _ Impression: - One 4 mm polyp in the transverse colon, removed with a cold biopsy forceps. Resected and retrieved. - The rectum, sigmoid colon, descending colon, ascending colon, cecum, appendiceal orifice and ileocecal valve are normal. Recommendation: - Await pathology results. - Repeat colonoscopy in 5 years for surveillance. - Return to primary care physician as previously scheduled. Procedure Code(s): --- Professional --- 00757, Colonoscopy, flexible; with biopsy, single or multiple --- Technical --- 21758, Colonoscopy, flexible; with biopsy, single or multiple Diagnosis Code(s): --- Professional --- Z12.11, Encounter for screening for malignant neoplasm of colon Z86.010, Personal history of colonic polyps D12.3, Benign neoplasm of transverse colon (hepatic flexure or splenic flexure) --- Technical --- Z12.11, Encounter for screening for malignant neoplasm of colon Z86.010, Personal history of colonic polyps D12.3, Benign neoplasm of transverse colon (hepatic flexure or splenic flexure) CPT copyright 2015 [employer]. All rights reserved. The codes documented in this report are preliminary and upon outpatient coder review may be revised to meet current compliance requirements. Dr. Gabriel Medina MD Gabriel Medina MD 08/20/2017 10:55:12 AM This report has been signed electronically. Number of Addenda: 0 Note Initiated On: 08/20/2017 10:05 AM DP ENDOSCOPY 08/20/2017 10:0 5 AM CANDLEMAKING LABORER us Gabriel Medina MD GI PROCEDURE ORDERABLES Demetris osiel Result - Final [facility] ENDOSCOPY ABBY Kwok [address] * PROSTATE SPECIFIC ANTIGEN SCREEN (05/14/2017 3:30 PM CDT) PSA 2.56 0.00 - 4.00 ng/mL [facility] ACCOUNT BILL Blood BLOOD SPECIMEN / Unknown 05/14/2017 3:30 PM CDT 05/14/2017 Narrative Resulting Agency Comment [facility] [address] Rissa MORA [id number] us Christi Diaz MD LAB - CHEMISTRY ORDERABLES Fin al Result [facility] ACCOUNT BILL [address] [place] [address] from Last 3 Months or Most Recently Relevant to Health Maintenance Insurance [facility] MEDICARE Advance Directives * Full Code (Latest Code Status on File) Date Activated Date Inactivated Comments 06/14/2018 2:28 PM 06/16/2018 2:09 PM * Full Code Date Activated Date Inactivated Comments 04/08/2017 10:27 AM 04/09/2017 4:22 PM Care Teams Digital Marketing Manager Relationship Specialty Start Date End Date MaxwellarronDave ferrerDO [address] [place] [address] PCP - General Family Medicine 11/21/20 [place] [address] [place] [address] Orthopedic Surgery 01/26/14 [place] [address] [place] [address] Anesthesiology-Pain Management 03/20/15 [place] [address] [place] [address] Orthopedic Surgery 02/08/17
--- OUTSIDE RECORDS SUMMARY | 2025-01-08 12:10 | XMS_ITS | Encounter Summary ---
Author Organization [facility] Address [address] [place] [address] Care Team Providers Care Material Damage Appraiser Name Role Phone Christi Diaz MD Primary Care Provider [phone] Abdi Wolfe MD Unavailable [phone] Valerio Leger MD Unavailable [phone] Uzair ROQUE MD, Frank Unavailable [phone] Christi Diaz MD Unavailable [phone] Dave Mendoza DO Primary Care Provider [phone] Encounter Details Date Type Department Care Team (Late st Contact Info) Description 03/01/2014 Therapy Visit EXTERNAL NON-[facility] DEPT Unknown, Provider Social History Tobacco Use Types Packs/Day Years Used Date Smoking Tobacco: Former Cigarettes Q uit: 08/23/1995 Smokeless Tobacco: Never Comments:QUIT 10 YRS AGO Alcohol Use Standard Drinks/Week Comments No 0 (1 standard drink = 0.6 oz pur e alcohol) Sex and Gender Information Value Date Recorded Sex Assigned at Not on file 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 [place] [address] PCP - General Internal Medicine 04/29/10 11/20/[address] [place] [address] [place] [address] PCP - [facility] 06/23/19 Dave Mendoza DO [address] [place] [address] PCP - General Family Medicine 11/21/20 [place] [address] [facility] [address] [facility] [place] [address] Orthopedic Surgery 01/26/14 [place] [address] [facility] [facility] [address] [place] [address] Anesthesiology-Pain Management 03/20/15 [place] [address] [facility] [address] [place] [address] Orthopedic Surgery 02/08/17 documented as of this encounter
--- OUTSIDE RECORDS SUMMARY | 2025-01-08 12:10 | XMS_ITS | Encounter Summary ---
Author Organization [facility] Address [address] [place] [place] [address] Care Team Providers Care Command Post Superintendent Name Role Phone Christi Diaz MD Primary Care Provider [phone] Abdi Wolfe MD Unavailable [phone] Valerio Leger MD Unavailable [phone] Uzair ROQUE MD, Chriss Unavailable [phone] Christi Diaz MD Unavailable [phone] Dave Mendoza DO Primary Care Provider [phone] Encounter Details Date Type Department Care Team (Late st Contact Info) Description 11/11/2017 [facility] Outpatient Visit [facility] - Family Medicine [id number] [place] [address] [address] [place] [address] [place] [address] 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 Answer Date of Assessment Author No 08/20/2017 11:04 AM Amelia Troy RN * Is person blind or have serious difficulty seeing? Answer Date of Assessment Author No 08/20/2017 11:04 AM Amelia Troy RN * Does person have serious difficulty walking/climbing stairs? Answer Date of Assessment Author No 08/20/2017 11:04 AM Amelia Troy RN * Does person have difficulty dressing/bathing? Answer Date of Assessment Author No 08/20/2017 11:04 AM Amelia Troy RN * Does person have difficulty doing errands alone? Answer Date of Assessment Author No 08/20/2017 11:04 AM Amelia Troy RN documented as of this encounter Mental Status * Does person have difficulty concentrating/remembering/making decisions? Answer Entry Date Author No 08/20/2017 11:04 AM Amelia Troy RN documented in this encounter Plan of Treatment Not on file documented as of this encounter Goals Goal Patient Goal Type Associated Problems Recent Progress Patient-Stated? Author Reduce cholesterol intake. Diet No Aleida Kay documented as of this encounter Visit Diagnoses Not on filedocumented in this encounter Care Teams Command Post Superintendent Relationship Specialty [place] [address] [address] [address] [place] [address] PCP - General Internal Medicine 04/29/10 11/20/20 [place] [address] [facility] [address] [place] [address] PCP - [facility] 06/23/19 Dvae Mendoza DO [address] [place] [address] PCP - General Family Medicine 11/21/20 [place] [address] [place] [address] Orthopedic Surgery 01/26/14 [place] [address] [place] [address] Anesthesiology-Pain Management 03/20/15 [place] [address] [address] [place] [address] Orthopedic Surgery 02/08/17 documented as of this encounter
[2025-01-08 19:49] LABS: Basophils Absolute Auto 0.1 K/mm3 (0.0-0.1); Basophils Percent Auto 0.6 % (0.2-1.2); Eosinophils Absolute Auto 0.4 K/mm3 (0-0.3); Eosinophils Percent Auto 3.9 % (0-4.4); Hematocrit 44.3 % (42.0-52.0); Hemoglobin 14.5 g/dL (14.0-18.0); Immature Granulocyte Absolute 0.09 K/mm3 (0.00-0.031); Lymphocytes Absolute Auto 2.54 K/mm3 (0.9-3.2); Lymphocytes Percent Auto 27.3 % (18.3-44.2); Mean Corpuscular HGB Conc 32.7 g/dl (32-36); Mean Corpuscular Hemoglobin 31.3 pg (26-34); Mean Corpuscular Volume 95.5 fl (80-100); Mean Platelet Volume 10.3 fl (7.4-10.4); Monocytes Absolute Auto 0.9 K/mm3 (0.1-0.6); Monocytes Percent Auto 9.9 % (2.6-8.5); Neutrophils Absolute Auto 5.3 K/mm3 (1.3-6.7); Neutrophils Percent Auto 57.3 % (45.5-73.1); Platelet Count Result 231 k/mm3 (150-375); Red Blood Count 4.64 M/mm3 (4.6-6.20); Red Cell Distribution Width 12.3 % (11.5-14.5); White Blood Count 9.3 K/mm3 (4.5-10.0)
[2025-01-08 20:07] LABS: Alanine Aminotransferase 27 U/L (6-50); Albumin Level 4.3 g/dL (3.5-5.1); Alkaline Phosphatase 75 U/L (38-126); Anion Gap 5 mmol/L (4-12); Aspartate Amino Transferase 62 U/L (17-59); Blood Urea Nitrogen 23 mg/dL (9-20); Calcium 8.6 mg/dL (8.4-10.2); Carbon Dioxide 31 mmol/L (22-30); Chloride 102 mmol/L (98-107); Cholesterol 195 mg/dL (0-200); Estimated Glomerular Filt Rate > 60; Glucose 95 mg/dL (65-110); HDL Direct 46 mg/dL; Magnesium 2.2 mg/dL (1.6-2.3); Potassium 4.4 mmol/L (3.4-5.0); Sodium 138 mmol/L (137-145); Triglycerides 295 mg/dL (<150)
[2025-01-08 20:18] LABS: LDL Cholesterol Direct 80 mg/dL
[2025-01-08 22:30] LABS: Hemoglobin A1C 5.3 % (<5.7)
[2025-01-09 03:09] LABS: Vitamin B12 > 1000.0 pg/mL (239-931)
[2025-01-12 13:28] LABS: Apolipoprotein B 93 mg/dL
== END 2025-01-08 11:52 | disposition home or self-care (01) ==
LOC: ANHBWCLAB 11:52
PROVIDERS: PCP Family Medicine; Visit Provider Family Medicine
DX: Z79.899 Other long term (current) drug therapy (principal); I10 Essential (primary) hypertension; E78.5 Hyperlipidemia, unspecified; E03.9 Hypothyroidism, unspecified; E53.8 Deficiency of other specified B group vitamins; D64.9 Anemia, unspecified; R73.9 Hyperglycemia, unspecified
CPT/HCPCS: 36415; 80053; 80061; 82172; 82306; 82607; 83036; 83735; 84443; 85025

== ENCOUNTER 2025-07-16 13:18 | Outpatient (CLI) | payer OTHER, SELFPAY ==
[2025-07-16 18:43] LABS: Hematocrit 40.7 % (42.0-52.0); Hemoglobin 13.7 g/dL (14.0-18.0); Immature Granulocyte Percent A 0.3 % (0-0.5); Lymphocytes Absolute Auto 2.04 K/mm3 (0.9-3.2); Mean Corpuscular HGB Conc 33.7 g/dl (32-36); Mean Corpuscular Hemoglobin 31.2 pg (26-34); Mean Corpuscular Volume 92.7 fl (80-100); Nucleated Red Blood Cells Absolute Auto 0.000 K/mm3 (0.0-0.012); Nucleated Red Blood Cells Perc 0.0 % (0.0-0.2); Platelet Count Result 240 k/mm3 (150-375); Red Blood Count 4.39 M/mm3 (4.6-6.20); White Blood Count 6.7 K/mm3 (4.5-10.0)
[2025-07-16 18:59] LABS: Alanine Aminotransferase 22 U/L (6-50); Alkaline Phosphatase 70 U/L (38-126); Aspartate Amino Transferase 54 U/L (17-59); Bilirubin,Total 1.0 mg/dL (0.2-1.3); Blood Urea Nitrogen 18 mg/dL (9-20); Carbon Dioxide 31 mmol/L (22-30); Estimated Glomerular Filt Rate 58; HDL Direct 35 mg/dL; Potassium 4.4 mmol/L (3.4-5.0); Sodium 139 mmol/L (137-145)
[2025-07-16 19:14] LABS: Albumin Level 4.6 g/dL (3.5-5.1); Anion Gap 6 mmol/L (4-12); Calcium 9.1 mg/dL (8.4-10.2); Chloride 102 mmol/L (98-107); Cholesterol 155 mg/dL (0-200); Glucose 95 mg/dL (65-110); Total Protein 7.9 g/dL (6.3-8.2); Triglycerides 184 mg/dL (<150)
[2025-07-16 19:26] LABS: Hepatitis B Surface Antigen Negative (Negative)
[2025-07-16 19:32] LABS: HAV RESULT Negative (Negative); Hepatitis B Core IgM Result Negative (Negative)
[2025-07-16 19:36] LABS: Thyroid Stimulating Hormone 1.160 uIU/mL (0.465-4.680)
[2025-07-16 19:55] LABS: Vitamin B12 602.0 pg/mL (239-931)
[2025-07-22 09:08] LABS: Summary Report (Summary) FINAL (.)
== END 2025-07-16 13:19 | disposition home or self-care (01) ==
PROVIDERS: PCP Family Medicine; Visit Provider Family Medicine
DX: R53.83 Other fatigue (principal); I10 Essential (primary) hypertension; E78.5 Hyperlipidemia, unspecified; E05.00 Thyrotoxicosis with diffuse goiter without thyrotoxic crisis or storm; E03.9 Hypothyroidism, unspecified; E53.8 Deficiency of other specified B group vitamins; R79.89 Other specified abnormal findings of blood chemistry; D64.9 Anemia, unspecified; G62.9 Polyneuropathy, unspecified; Z87.891 Personal history of nicotine dependence; Z00.00 Encounter for general adult medical examination without abnormal findings; E55.9 Vitamin D deficiency, unspecified
CPT/HCPCS: 36415; 80053; 80061; 80074; 80307; 82306; 82607; 84443; 85025